=== PATIENT | female | born 1975 | race Caucasian/White ===

== ENCOUNTER 2017-11-05 00:31 | Inpatient (IN) | payer MEDICARE, MEDICAID ==
[~2017-11-05] VITALS: Ht 167.6 cm; Wt 107.5 kg
[~2017-11-05 00:31] MED LIST: GABA-531 PO; GABA-533 PO; HALO.5 PO; HYDR-4031 PO; QUET25TA PO; TOPI100T37 PO
[2017-11-05] MEDS ORDERED: GABA-529 PO (01:10)
[2017-11-05] MEDS ORDERED: TOPI100T37 PO (01:10)
[2017-11-05] MEDS ORDERED: TRAZ150 PO (01:10)
[2017-11-05 01:46] VITALS: BP 161/85
[2017-11-05 02:41] VITALS: BP 138/77
[2017-11-05] MEDS: LORazepam 2 MG TABLET PO PRN ×3 (03:15→17:14)
[2017-11-05] MEDS: OLANZapine 5 MG RAPDIS TABLET PO PRN (03:15)
[2017-11-05 08:28] VITALS: BP 130/82
[2017-11-05] MEDS ORDERED: LOPERAMIDE HCL 2 MG CAPSULE PO PRN (12:15)
[2017-11-05] MEDS ORDERED: ONDANSETRON HCL 4 MG TABLET PO PRN (12:15)
[2017-11-05] MEDS ORDERED: ALBUTEROL SULFATE HFA 90 MCG/PUFF 8 GM INHALER IH PRN (12:15)
[2017-11-05] MEDS ORDERED: PETROLATUM,WHITE 71 GM JELLY TP PRN (12:15)
[2017-11-05] MEDS ORDERED: BENZOCAINE/MENTHOL LOZENGE MM PRN (12:15)
[2017-11-05] MEDS ORDERED: ACETAMINOPHEN 325 MG TABLET PO PRN (12:15)
[2017-11-05] MEDS ORDERED: CloNIDine HCL 0.1 MG TABLET PO PRN (12:15)
[2017-11-05] MEDS ORDERED: BACITRACIN 28.4 GM OINTMENT TP PRN (12:15)
[2017-11-05] MEDS ORDERED: MAG HYDROX/AL HYDROX/SIMETH ES 30 ML SUSPENSION UDCUP PO PRN (12:15)
[2017-11-05 16:42] VITALS: BP 148/77
[2017-11-05 17:13] VITALS: BP 143/78
[2017-11-05] MEDS: IBUPROFEN 600 MG TABLET PO PRN (17:14)
[2017-11-05] MEDS: ASENAPINE 10 MG SUBLINGUAL TABLET SL SCH (21:00)
[2017-11-05] MEDS: TOPIRAMATE 25 MG TABLET PO SCH (21:02)
[2017-11-05] MEDS: DiphenhydrAMINE HCL 25 MG CAPSULE PO SCH (21:03)
[2017-11-05] MEDS ORDERED: LORazepam 2 MG TABLET PO PRN (22:15)
[2017-11-05] MEDS: LORazepam 1 MG TABLET PO PRN (23:21)
[2017-11-05 23:45] VITALS: BP 138/83
[2017-11-06] MEDS ORDERED: -PHARMACY VACCINE NOTE- MISC ONE (04:15)
[2017-11-06] MEDS: MAGNESIUM HYDROXIDE SUSPENSION 30 ML UDCUP PO PRN (05:02)
[2017-11-06 05:33] VITALS: BP 138/83
[2017-11-06] MEDS: DOCUSATE SODIUM 100 MG CAPSULE PO SCH (08:11)
[2017-11-06] MEDS: GABAPENTIN 300 MG CAPSULE PO SCH ×3 (08:11→17:26)
[2017-11-06] MEDS: CHOLECALCIFEROL (VIT D3) 1,000 UNITS TABLET PO SCH (08:11)
[2017-11-06] MEDS: LORazepam 1 MG TABLET PO PRN ×2 (08:11→14:04)
[2017-11-06] MEDS: OMEPRAZOLE 20 MG CAPSULE PO SCH (08:11)
[2017-11-06 08:15] VITALS: BP 144/89
[2017-11-06] MEDS: IBUPROFEN 600 MG TABLET PO PRN ×2 (09:04→17:29)
[2017-11-06 16:14] VITALS: BP 142/67
[2017-11-06 17:00] VITALS: BP 142/67
[2017-11-06] MEDS: OLANZapine 5 MG RAPDIS TABLET PO PRN (17:26)
[2017-11-06 18:29] VITALS: BP 138/70
[2017-11-06] MEDS: DiphenhydrAMINE HCL 25 MG CAPSULE PO SCH (20:40)
[2017-11-06] MEDS: TOPIRAMATE 25 MG TABLET PO SCH (20:43)
[2017-11-06] MEDS: ASENAPINE 10 MG SUBLINGUAL TABLET SL SCH (21:00)
[2017-11-07] MEDS: LORazepam 1 MG TABLET PO PRN ×3 (00:05→23:20)
[2017-11-07] MEDS: IBUPROFEN 600 MG TABLET PO PRN ×2 (00:05→13:25)
[2017-11-07 01:00] VITALS: BP 129/83
[2017-11-07] MEDS: OMEPRAZOLE 20 MG CAPSULE PO SCH (08:18)
[2017-11-07] MEDS: GABAPENTIN 300 MG CAPSULE PO SCH ×3 (08:18→16:31)
[2017-11-07] MEDS: ILOPERIDONE 4 MG TABLET PO SCH ×2 (08:18→20:36)
[2017-11-07] MEDS: DOCUSATE SODIUM 100 MG CAPSULE PO SCH (08:18)
[2017-11-07] MEDS: CHOLECALCIFEROL (VIT D3) 1,000 UNITS TABLET PO SCH (08:18)
[2017-11-07 08:48] VITALS: BP 144/92
[2017-11-07] MEDS: OLANZapine 5 MG RAPDIS TABLET PO PRN (09:07)
[2017-11-07] MEDS: ATENOLOL 25 MG TABLET PO SCH (13:21)
[2017-11-07 13:22] VITALS: BP 140/68
[2017-11-07] MEDS ORDERED: DiphenhydrAMINE HCL 50 MG/ML VIAL IM ONE (13:45)
[2017-11-07] MEDS ORDERED: LORazepam 2 MG/ML VIAL IM ONE (13:45)
[2017-11-07 14:28] VITALS: BP 137/77
[2017-11-07 16:22] VITALS: BP 127/84
[2017-11-07] MEDS: DiphenhydrAMINE HCL 25 MG CAPSULE PO SCH (20:36)
[2017-11-07] MEDS: TOPIRAMATE 25 MG TABLET PO SCH (20:36)
[2017-11-07] MEDS ORDERED: TOPIRAMATE 100 MG TABLET PO SCH (21:00)
[2017-11-07] MEDS: MAGNESIUM HYDROXIDE SUSPENSION 30 ML UDCUP PO PRN (22:10)
[2017-11-07] MEDS: ESZOPICLONE 2 MG TABLET PO PRN (23:20)
[2017-11-08 05:21] VITALS: BP 122/74
[2017-11-08] MEDS: LORazepam 1 MG TABLET PO PRN ×2 (07:33→17:31)
[2017-11-08] MEDS: DOCUSATE SODIUM 100 MG CAPSULE PO SCH (08:14)
[2017-11-08] MEDS: ATENOLOL 25 MG TABLET PO SCH (08:14)
[2017-11-08] MEDS: CHOLECALCIFEROL (VIT D3) 1,000 UNITS TABLET PO SCH (08:14)
[2017-11-08] MEDS: OLANZapine 5 MG RAPDIS TABLET PO PRN (08:14)
[2017-11-08] MEDS: ILOPERIDONE 4 MG TABLET PO SCH (08:14)
[2017-11-08] MEDS: GABAPENTIN 300 MG CAPSULE PO SCH ×3 (08:14→17:31)
[2017-11-08] MEDS: OMEPRAZOLE 20 MG CAPSULE PO SCH (08:14)
[2017-11-08 08:28] LABS: AMPHET/METH SCREEN,URINE NEGATIVE (NEGATIVE); BARBITURATE SCREEN, URINE NEGATIVE (NEGATIVE); BENZODIAZEPINES SCREEN,URINE NEGATIVE (NEGATIVE); CANNABINOID SCREEN,URINE POSITIVE (NEGATIVE); COCAINE SCREEN,URINE NEGATIVE (NEGATIVE); METHADONE SCREEN, URINE NEGATIVE (NEGATIVE); OPIATE SCREEN,URINE NEGATIVE (NEGATIVE)
[2017-11-08 08:30] LABS: PHENCYCLIDINE SCREEN,URINE NEGATIVE (NEGATIVE)
[2017-11-08 08:35] VITALS: BP 128/63
[2017-11-08 08:42] LABS: APPEARANCE,URINE CLEAR (CLEAR); BILIRUBIN,URINE NEGATIVE (NEGATIVE); GLUCOSE, URINE (UA) NEGATIVE (NEGATIVE); KETONES,URINE NEGATIVE (NEGATIVE); LEUKOCYTE ESTERASE ,URINE NEGATIVE (NEGATIVE); NITRATE,URINE NEGATIVE (NEGATIVE); OCCULT BLOOD,URINE NEGATIVE (NEGATIVE); PROTEIN,URINE NEGATIVE (NEGATIVE); UROBILINOGEN,URINE 0.2 mg/dL (<=1.0)
[2017-11-08 16:38] VITALS: BP 135/70
[2017-11-08] MEDS: DiphenhydrAMINE HCL 25 MG CAPSULE PO SCH (21:05)
[2017-11-08] MEDS: TOPIRAMATE 100 MG TABLET PO SCH (21:06)
[2017-11-08] MEDS: IBUPROFEN 600 MG TABLET PO PRN (22:25)
[2017-11-08] MEDS: ESZOPICLONE 2 MG TABLET PO PRN (23:38)
[2017-11-09 04:00] VITALS: BP 140/78
[2017-11-09] MEDS: LORazepam 1 MG TABLET PO PRN ×2 (04:26→08:45)
[2017-11-09] MEDS: ChlorproMAZINE HCL 50 MG TABLET PO PRN (04:35)
[2017-11-09] MEDS: ATENOLOL 25 MG TABLET PO SCH (08:20)
[2017-11-09] MEDS: DOCUSATE SODIUM 100 MG CAPSULE PO SCH (08:20)
[2017-11-09] MEDS: OMEPRAZOLE 20 MG CAPSULE PO SCH (08:20)
[2017-11-09] MEDS: GABAPENTIN 300 MG CAPSULE PO SCH ×3 (08:20→16:02)
[2017-11-09] MEDS: CHOLECALCIFEROL (VIT D3) 1,000 UNITS TABLET PO SCH (08:20)
[2017-11-09 08:40] VITALS: BP 126/68
[2017-11-09] MEDS: IBUPROFEN 600 MG TABLET PO PRN (08:45)
[2017-11-09 08:52] VITALS: BP 121/66
[2017-11-09] MEDS ORDERED: HYDROCORTISONE 1% 30 GM OINTMENT TP PRN (09:00)
[2017-11-09] MEDS ORDERED: HYDROCORTISONE 1% 30 GM OINTMENT TP SCH (09:00)
[2017-11-09 09:40] VITALS: BP 132/75
[2017-11-09] MEDS ORDERED: LORazepam 2 MG/ML VIAL IM ONE (10:15)
[2017-11-09] MEDS ORDERED: DiphenhydrAMINE HCL 50 MG/ML VIAL IM ONE (10:15)
[2017-11-09 19:40] VITALS: BP_SYST 120; BP_SYST 128; BP_DIAS 76; BP_DIAS 87
[2017-11-09] MEDS: DiphenhydrAMINE HCL 25 MG CAPSULE PO SCH (20:44)
[2017-11-09] MEDS: TOPIRAMATE 100 MG TABLET PO SCH (20:44)
[2017-11-10] VITALS: BP 127/79
[2017-11-10] MEDS: ESZOPICLONE 2 MG TABLET PO PRN ×2 (00:42→20:52)
[2017-11-10] MEDS: IBUPROFEN 600 MG TABLET PO PRN ×2 (01:12→18:41)
[2017-11-10 08:11] LABS: BASOPHILS % (AUTO) 0.3 % (0.0-2.0); EOSINOPHILS % (AUTO) 1.6 % (1.0-6.0); HEMATOCRIT 38.1 % (36-46); HEMOGLOBIN 13.1 g/dL (12.0-16.0); LYMPHOCYTES # (AUTO) 2.8 K/uL (1.0-4.8); LYMPHOCYTES % (AUTO) 35.6 % (22.0-44.0); MEAN CORPUSCULAR HEMOGLOBIN 27.5 pg (26.0-34.0); MEAN CORPUSCULAR HGB CONC 34.3 G/dL (31.0-37.0); MEAN CORPUSCULAR VOLUME 80 fL (80-100); MONOCYTES # (AUTO) 0.7 K/uL (0.1-1.0); MONOCYTES % (AUTO) 8.7 % (2.0-9.0); NEUTROPHILS # (AUTO) 4.2 K/uL (1.8-7.7); NEUTROPHILS % (AUTO) 53.8 % (40.0-70.0); PLATELET COUNT (AUTO) 268 K/uL (150-450); RED BLOOD CELL COUNT(AUTO) 4.75 MIL/uL (4.00-5.20)
[2017-11-10 08:16] LABS: HEMOGLOBIN A1C 6.1 % (4.5-6.2)
[2017-11-10 08:25] LABS: AMPHET/METH SCREEN,URINE NEGATIVE (NEGATIVE); BARBITURATE SCREEN, URINE NEGATIVE (NEGATIVE); BENZODIAZEPINES SCREEN,URINE NEGATIVE (NEGATIVE); CANNABINOID SCREEN,URINE POSITIVE (NEGATIVE); COCAINE SCREEN,URINE NEGATIVE (NEGATIVE); METHADONE SCREEN, URINE NEGATIVE (NEGATIVE); OPIATE SCREEN,URINE NEGATIVE (NEGATIVE)
[2017-11-10] MEDS: LORazepam 1 MG TABLET PO PRN ×3 (08:25→19:51)
[2017-11-10] MEDS: DOCUSATE SODIUM 100 MG CAPSULE PO SCH (08:25)
[2017-11-10] MEDS: OLANZapine 5 MG RAPDIS TABLET PO PRN ×2 (08:25→15:19)
[2017-11-10] MEDS: GABAPENTIN 300 MG CAPSULE PO SCH ×3 (08:25→16:37)
[2017-11-10] MEDS: OMEPRAZOLE 20 MG CAPSULE PO SCH (08:25)
[2017-11-10] MEDS: CHOLECALCIFEROL (VIT D3) 1,000 UNITS TABLET PO SCH (08:25)
[2017-11-10] MEDS: ATENOLOL 25 MG TABLET PO SCH (08:25)
[2017-11-10 08:27] LABS: PHENCYCLIDINE SCREEN,URINE NEGATIVE (NEGATIVE)
[2017-11-10 08:45] LABS: CHOL/HDL RATIO 2.7 (3.9-5.7); CHOLESTEROL 93 mg/dL (131-200); FREE T4 (FREE THYROXINE) 4.92 ng/dL (0.76-1.46); HDL CHOLESTEROL 35 mg/dL (40-60); LDL CHOL (CALC.) 45 mg/dL (0-130); TRIGLYCERIDES 67 mg/dL (15-150)
[2017-11-10 09:06] VITALS: BP 158/80
[2017-11-10 09:07] LABS: THYROID STIMULATING HORMONE < 0.01 uIU/mL (0.36-3.74)
[2017-11-10] MEDS: ChlorproMAZINE HCL 50 MG TABLET PO PRN (15:19)
[2017-11-10] MEDS: ChlorproMAZINE HCL 100 MG TABLET PO SCH (20:52)
[2017-11-10] MEDS: TOPIRAMATE 100 MG TABLET PO SCH (20:52)
[2017-11-10] MEDS: DiphenhydrAMINE HCL 25 MG CAPSULE PO SCH (20:52)
[2017-11-11 01:39] VITALS: BP 139/82
[2017-11-11] MEDS: ChlorproMAZINE HCL 50 MG TABLET PO PRN ×2 (03:19→16:53)
[2017-11-11] MEDS: LORazepam 1 MG TABLET PO PRN ×4 (03:19→17:14)
[2017-11-11 08:27] VITALS: BP 144/75
[2017-11-11] MEDS: ATENOLOL 25 MG TABLET PO SCH (08:29)
[2017-11-11] MEDS: CHOLECALCIFEROL (VIT D3) 1,000 UNITS TABLET PO SCH (08:29)
[2017-11-11] MEDS: GABAPENTIN 300 MG CAPSULE PO SCH ×3 (08:29→16:53)
[2017-11-11] MEDS: OMEPRAZOLE 20 MG CAPSULE PO SCH (08:29)
[2017-11-11] MEDS: DOCUSATE SODIUM 100 MG CAPSULE PO SCH (08:29)
[2017-11-11] MEDS: OLANZapine 5 MG RAPDIS TABLET PO PRN (08:31)
[2017-11-11 10:45] VITALS: BP 120/74
[2017-11-11] MEDS: IBUPROFEN 600 MG TABLET PO PRN ×2 (10:45→17:02)
[2017-11-11 17:09] VITALS: BP 139/82
[2017-11-11] MEDS ORDERED: LORazepam 2 MG/ML VIAL ONE (18:38)
[2017-11-11] MEDS ORDERED: DiphenhydrAMINE HCL 50 MG/ML VIAL ONE (18:38)
[2017-11-11] MEDS ORDERED: LORazepam 2 MG/ML VIAL IM ONE (18:45)
[2017-11-11] MEDS ORDERED: DiphenhydrAMINE HCL 50 MG/ML VIAL IM ONE (18:45)
[2017-11-11 19:45] VITALS: BP 145/66
[2017-11-11] MEDS: TOPIRAMATE 100 MG TABLET PO SCH (20:53)
[2017-11-11] MEDS: DiphenhydrAMINE HCL 25 MG CAPSULE PO SCH (20:53)
[2017-11-11] MEDS: ChlorproMAZINE HCL 100 MG TABLET PO SCH (20:53)
[2017-11-11] MEDS: ESZOPICLONE 2 MG TABLET PO PRN (20:53)
[2017-11-12 05:23] VITALS: BP 130/85
[2017-11-12] MEDS: QUEtiapine FUMARATE 100 MG TABLET PO SCH ×2 (06:08→12:35)
[2017-11-12] MEDS: GABAPENTIN 300 MG CAPSULE PO SCH ×3 (08:17→16:52)
[2017-11-12] MEDS: DOCUSATE SODIUM 100 MG CAPSULE PO SCH (08:17)
[2017-11-12] MEDS: LORazepam 1 MG TABLET PO PRN ×2 (08:18→19:45)
[2017-11-12] MEDS: OMEPRAZOLE 20 MG CAPSULE PO SCH (08:18)
[2017-11-12] MEDS: CHOLECALCIFEROL (VIT D3) 1,000 UNITS TABLET PO SCH (08:18)
[2017-11-12] MEDS: ATENOLOL 25 MG TABLET PO SCH (08:18)
[2017-11-12 08:43] VITALS: BP 144/72
[2017-11-12 10:34] VITALS: BP 124/70
[2017-11-12] MEDS: IBUPROFEN 600 MG TABLET PO PRN (10:34)
[2017-11-12] MEDS ORDERED: LORATADINE 10 MG TABLET PO PRN (11:30)
[2017-11-12] MEDS ORDERED: QUEtiapine FUMARATE 100 MG TABLET PO SCH (13:00)
[2017-11-12] MEDS: OLANZapine 5 MG RAPDIS TABLET PO PRN (14:39)
[2017-11-12] MEDS: ChlorproMAZINE HCL 50 MG TABLET PO PRN (16:09)
[2017-11-12 16:24] VITALS: BP 125/65
[2017-11-12 16:26] VITALS: BP 125/55
[2017-11-12] MEDS ORDERED: QUEtiapine FUMARATE 200 MG TABLET PO SCH (21:00)
[2017-11-12] MEDS: DiphenhydrAMINE HCL 25 MG CAPSULE PO SCH (21:52)
[2017-11-12] MEDS: ChlorproMAZINE HCL 100 MG TABLET PO SCH (21:52)
[2017-11-12] MEDS: TOPIRAMATE 100 MG TABLET PO SCH (21:53)
== END 2017-11-12 21:50 | disposition left against medical advice (07) | DRG 885 ==
LOC: B3A 02:11 → EDSTATUS 02:19
PROVIDERS: ATTEND Psychiatry & Neurology Psychiatry
DX: F31.64 Bipolar disorder, current episode mixed, severe, with psychotic features (principal); E78.5 Hyperlipidemia, unspecified; E66.9 Obesity, unspecified; E55.9 Vitamin D deficiency, unspecified; R32 Unspecified urinary incontinence; R51 Headache; F41.9 Anxiety disorder, unspecified; J44.9 Chronic obstructive pulmonary disease, unspecified; G47.00 Insomnia, unspecified; M54.5 Low back pain; Z53.21 Procedure and treatment not carried out due to patient leaving prior to being seen by health care provider; K21.9 Gastro-esophageal reflux disease without esophagitis; K59.00 Constipation, unspecified; Z79.899 Other long term (current) drug therapy; Z80.9 Family history of malignant neoplasm, unspecified; Z91.14 Patient's other noncompliance with medication regimen; Z88.1 Allergy status to other antibiotic agents; Z88.8 Allergy status to other drugs, medicaments and biological substances; Z68.38 Body mass index [BMI] 38.0-38.9, adult
CPT/HCPCS: 80307; 83036; 84439; 84443; J1200; J2060; J3230